=== PATIENT | female | born 1930 | race Caucasian/White ===

== ENCOUNTER 2017-03-20 08:08 | Inpatient (IN) ==
[2017-03-20] MEDS ORDERED: 0.9 % SODIUM CHLORIDE 1,000 ML IV SCH ×2 (08:30→12:07)
--- NOTE | 2017-03-20 08:38 | Emergency Department Note ---
Altered Mental Status HPI - General Chief Complaint: Altered Mental Status Stated Complaint: Altered LOC Time Seen by Provider: 03/20/17 08:12 Source: family, EMS Mode of arrival: EMS Limitations: no limitations - History of Present Illness HPI Narrative: 86-year-old female brought in by ambulance which patient has had decreased level consciousness for the past 4 days since last . She does have a history of Alzheimer's and does not verbally respond but her to daughter care providers state that she is more weak than normal. She is incontinent of urine which is normal for they state that she has been constipated and her last bowel movement was approximately 3 days ago hard and firm. Family states she has been having low-grade temperatures 99-100 MTs state that had 100.4 however ourtemperature at this time is 98.8. Sats are 97% with 4 L of O2 she does have a history of severe COPD and uses O2 at home particularly at nighttime family states she quit smoking approximately 4 years ago but does have extensive. History of COPD. She is DNR they have decided not to do any more ultrasounds of the abdominal aneurysm seen in the notes of the PCP they state they would not do anything aggressive in the way. Do allow use of fluids and antibiotics indicated. States that her diet has been poor her fluid intake has been poor as well - Related Data Home Medications Medication Instructions Recorded Confirmed cholecalciferol (vitamin D3) 1,000 1,000 unit PO QDAY 02/10/15 03/20/17 unit capsule multivitamin oral liquid 1 ml PO QDAY ml 06/08/16 03/20/17 Previous Rx's Medication Instructions Recorded starch (thickening) oral powder See Dose Instructions .ROUTE 02/15/15 packet .MEDSUPPLY #120 each [facility] Hydraulic Lift #1 each 12/16/15 levalbuterol 1.25 mg/3 mL solution 1.25 mg INHALATION Q8H PRN #120 ml 03/02/16 for nebulization Oxygen and supplies #1 yr 07/17/16 metoprolol succinate ER 25 mg 12.5 mg PO QDAY #90 tab 10/12/16 tablet,extended release 24 hr cefdinir 300 mg capsule 300 mg PO Q12H 10 Days #20 cap 03/19/17 Allergies Allergy/AdvReac Type Severity Reaction Status Date / Time No Known Drug Allergies Allergy Verified 03/20/17 08:17 Review of Systems All systems ED: reviewed and negative except as stated. Constitutional: Reports: fever. Denies: chills Eyes: Denies: eye pain ENT ED: Denies: ear pain Cardiovascular: Denies: chest pain, palpitations Respiratory: Reports: other (COPD on home O2). Denies: cough Gastrointestinal: Reports: constipation. Denies: abdominal pain, nausea, vomiting Genitourinary: Reports: incontinence Musculoskeletal: Reports: back pain Integumentary: Denies: rash Neurological: Reports: weakness, other (Severe Alzheimer's). Denies: headache, numbness, paresthesias, confusion Endocrine: Reports: fatigue Hematological/Lymphatic: Denies: easy bleeding Allergic/Immunologic: Denies: facial swelling Past Medical History - Past Medical History Medical history: Reports: aortic aneurysm, COPD, dementia, hyperlipidemia, osteoporosis, other (abdominal aneurysm) Surgical history ED: Reports: cataract, cholecystectomy, hip replacement, CLAY/ BSO Family history: Reports: cancer (Father colon cancer), diabetes (Mother diabetes , aortic aneurysm) - Social History smoking status: Former smoker (Heavy in the past quit 4 years ago) Alcohol use: Reports: None Drug use: Reports: none Physical Exam Limitations: no limitations General appearance: other (has Alzheimer's does not respond verbally) Head: atraumatic, normocephalic Eye: Present: PERRL ENT: normal exam, normal oropharynx, mucous membranes moist Neck: Present: normal inspection, full ROM Chest: Present: normal inspection, symmetric chest wall rise Respiratory: Present: normal lung sounds bilaterally. Absent: respiratory distress, wheezes Cardiovascular: Present: regular rate, normal rhythm. Absent: bradycardia, tachycardia Abdominal: Present: soft, normal bowel sounds. Absent: distention, tenderness, guarding, rebound, rigidity Extremities: Present: normal inspection, full ROM. Absent: tenderness Back: Present: normal inspection, full ROM. Absent: tenderness Patient oriented to: Absent: person, place, time Cranial nerves: EOM function (II, III, IV, ): Normal, facial sensation (V): Normal, facial palsy (VII): Normal, gag reflex (IX): Normal, spinal accessory function (XI): Normal, tongue deviation (XII): Normal Upper motor neuron exam: Babinski sign: Absent bilaterally Sensory exam upper extremity: Normal: pin prick Sensory exam lower extremity: Normal: pin prick DTR: 2+: patellar (L), patellar (R) Course Vital Signs Temperature 98.7 F 03/20/17 08:09 Pulse Rate 119 H 03/20/17 08:09 Respiratory Rate 38 H 03/20/17 08:09 Pulse Oximetry (%) 99 03/20/17 08:09 Temperature 99.4 F H 03/22/17 04:01 Pulse Rate 90 03/22/17 07:00 Respiratory Rate 16 03/22/17 07:00 Blood Pressure 75/45 03/22/17 04:01 Pulse Oximetry (%) 94 03/22/17 04:01 Altered Mental Status - Lab Data Result diagrams: 03/22/17 03:48 03/22/17 03:48 Lab Results 03/20/17 03/20/17 03/20/17 Range/Units 08:03 08:03 08:03 WBC 12.3 H (4.5-11.0) K/mcL RBC 4.59 (4.00-5.20) M/mcL Hgb 14.1 (12.0-15.0) g/dL Hct 43.0 (36.0-48.0) % MCV 93.7 (80.0-100.0) fL MCH 30.6 (26.0-34.0) pg MCHC 32.7 (31.0-36.0) g/dL RDW 16.0 H (11.5-14.5) % Plt Count 280 (140-440) K/mcL MPV 9.8 (7.4-10.4) fL Gran % 80.6 H (38.0-78.0) % Lymph % (Auto) 15.2 L (15.5-49.0) % [place] % (Auto) 3.9 (1.0-12.0) % Eos % (Auto) 0.2 (0.0-7.0) % Baso % (Auto) 0.1 (0.0-2.0) % Gran # 9.9 H (1.8-8.0) K/mcL Lymph # (Auto) 1.9 (1.5-4.8) K/mcL [place] # (Auto) 0.5 (0.1-0.9) K/mcL Eos # (Auto) 0 (0.0-0.7) K/mcL Baso # (Auto) 0 (0.0-0.3) K/mcL VBG Lactic Acid (0.5-2.2) mmol/L Sodium 169 H* (133-145) mmol/L Potassium 4.1 (3.3-5.1) mmol/L Chloride 131 H (96-108) mmol/L Carbon Dioxide 20 L (22-30) mmol/L Anion Gap 18.0 H (8-16) BUN 50 H (8-23) mg/dl Creatinine 1.4 H (0.6-1.1) mg/dl GFR Calculation 34 Glucose 162 H (70-105) mg/dL Calcium 10.1 (8.6-10.4) mg/dl Total Bilirubin 0.4 (0.0-1.0) mg/dL AST 52 H (0-37) U/l ALT 63 H (0-40) U/l Alkaline Phosphatase 202 H (39-117) U/L Total Creatine Kinase 112 (24-170) IU/L CK-MB (CK-2) (0-2.9) ng/ml Myoglobin 165 H (25-58) ng/ml Troponin T 0.05 H* (0-0.03) ng/ml NT-Pro-B Natriuret Pep (0-450) pg/ml Total Protein 7.3 (5.9-8.4) gm/dL Albumin 3.4 (3.2-5.2) gm/dL Globulin 3.9 H (2.2-3.7) gm/dL Albumin/Globulin Ratio 0.9 L (1.0-2.3) Urine Color Urine Appearance Urine pH (5.0-9.0) Ur Specific [place] (1.000-1.035) Urine Protein (NEG) mg/dL Urine Glucose (UA) (NEG) mg/dL Urine Ketones (NEG) mg/dL Urine Occult Blood (<0.03) mg/dL Urine Nitrate (NEG) Urine Bilirubin (NEG) mg/dL Urine Urobilinogen (NEG) mg/dL Ur Leukocyte Esterase (NEG) /uL Urine RBC (0-1) /hpf Urine WBC (0-4) /hpf Ur Squamous Epith Cells (0-4) /hpf Urine Bacteria (0) /hpf Hyaline Casts (0-2) /lpf Urine Mucus (0) /hpf Ur Culture Indicated? 03/20/17 03/20/17 03/20/17 Range/Units 08:03 08:03 08:03 WBC (4.5-11.0) K/mcL RBC (4.00-5.20) M/mcL Hgb (12.0-15.0) g/dL Hct (36.0-48.0) % MCV (80.0-100.0) fL MCH (26.0-34.0) pg MCHC (31.0-36.0) g/dL RDW (11.5-14.5) % Plt Count (140-440) K/mcL MPV (7.4-10.4) fL Gran % (38.0-78.0) % Lymph % (Auto) (15.5-49.0) % Elliott % (Auto) (1.0-12.0) % Eos % (Auto) (0.0-7.0) % Baso % (Auto) (0.0-2.0) % Gran # (1.8-8.0) K/mcL Lymph # (Auto) (1.5-4.8) K/mcL [place] # (Auto) (0.1-0.9) K/mcL Eos # (Auto) (0.0-0.7) K/mcL Baso # (Auto) (0.0-0.3) K/mcL VBG Lactic Acid 2.9 H (0.5-2.2) mmol/L Sodium (133-145) mmol/L Potassium (3.3-5.1) mmol/L Chloride (96-108) mmol/L Carbon Dioxide (22-30) mmol/L Anion Gap (8-16) BUN (8-23) mg/dl Creatinine (0.6-1.1) mg/dl GFR Calculation Glucose (70-105) mg/dL Calcium (8.6-10.4) mg/dl Total Bilirubin (0.0-1.0) mg/dL AST (0-37) U/l ALT (0-40) U/l Alkaline Phosphatase (39-117) U/L Total Creatine Kinase (24-170) IU/L CK-MB (CK-2) 1.2 (0-2.9) ng/ml Myoglobin (25-58) ng/ml Troponin T (0-0.03) ng/ml NT-Pro-B Natriuret Pep 3335.0 H (0-450) pg/ml Total Protein (5.9-8.4) gm/dL Albumin (3.2-5.2) gm/dL Globulin (2.2-3.7) gm/dL Albumin/Globulin Ratio (1.0-2.3) Urine Color Urine Appearance Urine pH (5.0-9.0) Ur Specific [place] (1.000-1.035) Urine Protein (NEG) mg/dL Urine Glucose (UA) (NEG) mg/dL Urine Ketones (NEG) mg/dL Urine Occult Blood (<0.03) mg/dL Urine Nitrate (NEG) Urine Bilirubin (NEG) mg/dL Urine Urobilinogen (NEG) mg/dL Ur Leukocyte Esterase (NEG) /uL Urine RBC (0-1) /hpf Urine WBC (0-4) /hpf Ur Squamous Epith Cells (0-4) /hpf Urine Bacteria (0) /hpf Hyaline Casts (0-2) /lpf Urine Mucus (0) /hpf Ur Culture Indicated? 03/20/17 Range/Units 09:05 WBC (4.5-11.0) K/mcL RBC (4.00-5.20) M/mcL Hgb (12.0-15.0) g/dL Hct (36.0-48.0) % MCV (80.0-100.0) fL MCH (26.0-34.0) pg MCHC (31.0-36.0) g/dL RDW (11.5-14.5) % Plt Count (140-440) K/mcL MPV (7.4-10.4) fL Gran % (38.0-78.0) % Lymph % (Auto) (15.5-49.0) % Elliott % (Auto) (1.0-12.0) % Eos % (Auto) (0.0-7.0) % Baso % (Auto) (0.0-2.0) % Gran # (1.8-8.0) K/mcL Lymph # (Auto) (1.5-4.8) K/mcL [place] # (Auto) (0.1-0.9) K/mcL Eos # (Auto) (0.0-0.7) K/mcL Baso # (Auto) (0.0-0.3) K/mcL VBG Lactic Acid (0.5-2.2) mmol/L Sodium (133-145) mmol/L Potassium (3.3-5.1) mmol/L Chloride (96-108) mmol/L Carbon Dioxide (22-30) mmol/L Anion Gap (8-16) BUN (8-23) mg/dl Creatinine (0.6-1.1) mg/dl GFR Calculation Glucose (70-105) mg/dL Calcium (8.6-10.4) mg/dl Total Bilirubin (0.0-1.0) mg/dL AST (0-37) U/l ALT (0-40) U/l Alkaline Phosphatase (39-117) U/L Total Creatine Kinase (24-170) IU/L CK-MB (CK-2) (0-2.9) ng/ml Myoglobin (25-58) ng/ml Troponin T (0-0.03) ng/ml NT-Pro-B Natriuret Pep (0-450) pg/ml Total Protein (5.9-8.4) gm/dL Albumin (3.2-5.2) gm/dL Globulin (2.2-3.7) gm/dL Albumin/Globulin Ratio (1.0-2.3) Urine Color Yellow Urine Appearance Hazy Urine pH 6.0 (5.0-9.0) Ur Specific [place] 1.025 (1.000-1.035) Urine Protein 30 A (NEG) mg/dL Urine Glucose (UA) Negative (NEG) mg/dL Urine Ketones 5/tr A (NEG) mg/dL Urine Occult Blood Neg (<0.03) mg/dL Urine Nitrate Neg (NEG) Urine Bilirubin Neg (NEG) mg/dL Urine Urobilinogen Neg (NEG) mg/dL Ur Leukocyte Esterase 75 A (NEG) /uL Urine RBC 2 H (0-1) /hpf Urine WBC 36 H (0-4) /hpf Ur Squamous Epith Cells 1 (0-4) /hpf Urine Bacteria Few A (0) /hpf Hyaline Casts 8 H (0-2) /lpf Urine Mucus Mod (0) /hpf Ur Culture Indicated? Yes Disposition Pt seen by CONTROL INTEGRATION ENGINEER/PA only: No Clinical Impression: Dementia, Sepsis, Urinary tract infection Clinical Impression: (Ruled Out): Hypernatremia Disposition: Xfer As Inpt ([facility]) Condition: Fair Time of Disposition: 08:33
[2017-03-20] MEDS ORDERED: 0.9 % SODIUM CHLORIDE 1,000 ML IV ONE (08:50)
--- NOTE | 2017-03-20 08:55 | XRay Report ---
HISTORY: Reason for Exam:weakness, fever, copd dec loc FINDINGS: There is a small alveolar infiltrate medially in the left lower lobe. Laterally in left lower lobe there are bands of discoid atelectasis. Patient has underlying interstitial pulmonary fibrosis throughout both lungs. No pleural effusion is present. The heart size is normal. The aorta is tortuous. IMPRESSION: Mild pneumonia and discoid atelectasis in the left lower lobe Interpreted and Authenticated by: Kenny Crum 03/20/17
[2017-03-20] MEDS ORDERED: LEVOFLOXACIN 500 MG/100 ML BAG IV ONE (09:05)
[2017-03-20 09:12] LABS: Basophils # (Auto) 0 K/mcL (0.0-0.3); Basophils % (Auto) 0.1 % (0.0-2.0); Eosinophils # (Auto) 0 K/mcL (0.0-0.7); Eosinophils % (Auto) 0.2 % (0.0-7.0); Granulocytes % (Auto) 80.6 % (38.0-78.0); Lymphocytes # (Auto) 1.9 K/mcL (1.5-4.8); Lymphocytes % (Auto) 15.2 % (15.5-49.0); Mean Cell Volume 93.7 fL (80.0-100.0); Mean Corpuscular HGB Conc 32.7 g/dL (31.0-36.0); Mean Corpuscular Hemoglobin 30.6 pg (26.0-34.0); Monocytes # (Auto) 0.5 K/mcL (0.1-0.9); Monocytes % (Auto) 3.9 % (1.0-12.0); Platelet Count 280 K/mcL (140-440); RBC 4.59 M/mcL (4.00-5.20)
[2017-03-20 09:40] LABS: ALT/SGPT 63 U/l (0-40); Albumin 3.4 gm/dL (3.2-5.2); Albumin/Globulin Ratio 0.9 (1.0-2.3); Alkaline Phosphatase 202 U/L (39-117); Blood Urea Nitrogen 50 mg/dl (8-23); Creatine Kinase 112 IU/L (24-170); Myoglobin 165 ng/ml (25-58)
[2017-03-20 09:48] LABS: Appearance,Urine HAZY; Bacteria,Urine FEW /hpf (0); Bilirubin,Urine NEG (NEG); Color,Urine YELLOW; Glucose,Urine (UA) NEGATIVE (NEG); Leukocyte Esterase,Urine 75 /uL (NEG); Mucus,Urine MOD /hpf (0); Nitrate,Urine NEG (NEG); Protein,Urine 30 mg/dL (NEG); Specific Gravity,Urine 1.025 (1.000-1.035); Urine Blood NEG mg/dL (<0.03); Urine Hyaline Cast 8 /lpf (0-2); Urine RBC 2 /hpf (0-1); Urine Squamous Epithelial Cell 1 /hpf (0-4); Urine WBC 36 /hpf (0-4); Urobilinogen,Urine NEG (NEG)
[2017-03-20] MEDS ORDERED: ACETAMINOPHEN 650 MG SUPP.RECT PR ONE (09:52)
--- NOTE | 2017-03-20 09:56 | Emergency Department Note ---
Altered Mental Status HPI - General Chief Complaint: Altered Mental Status Stated Complaint: Altered LOC Time Seen by Provider: 03/20/17 08:12 Source: family, EMS Mode of arrival: EMS Limitations: no limitations - Related Data Home Medications Medication Instructions Recorded Confirmed cholecalciferol (vitamin D3) 1,000 1,000 unit PO QDAY 02/10/15 03/20/17 unit capsule Essential Source Max Effect Liquid PO 02/15/15 10/12/16 Vitamin Delivery multivitamin oral liquid 1 ml PO QDAY ml 06/08/16 03/20/17 Previous Rx's Medication Instructions Recorded starch (thickening) oral powder See Dose Instructions .ROUTE 02/15/15 packet .MEDSUPPLY #120 each [facility] Hydraulic Lift #1 each 12/16/15 levalbuterol 1.25 mg/3 mL solution 1.25 mg INHALATION Q8H PRN #120 ml 03/02/16 for nebulization Oxygen and supplies #1 yr 07/17/16 metoprolol succinate ER 25 mg 12.5 mg PO QDAY #90 tab 10/12/16 tablet,extended release 24 hr cefdinir 300 mg capsule 300 mg PO Q12H 10 Days #20 cap 03/19/17 Allergies Allergy/AdvReac Type Severity Reaction Status Date / Time No Known Drug Allergies Allergy Verified 03/20/17 08:17 Review of Systems Constitutional: Reports: fever. Denies: chills Eyes: Denies: eye pain ENT ED: Denies: ear pain Cardiovascular: Denies: chest pain, palpitations Respiratory: Reports: other (COPD on home O2). Denies: cough Gastrointestinal: Reports: constipation. Denies: abdominal pain, nausea, vomiting Genitourinary: Reports: incontinence Musculoskeletal: Reports: back pain Integumentary: Denies: rash Neurological: Reports: weakness, other (Severe Alzheimer's). Denies: headache, numbness, paresthesias, confusion Endocrine: Reports: fatigue Hematological/Lymphatic: Denies: easy bleeding Allergic/Immunologic: Denies: facial swelling Past Medical History - Past Medical History Medical history: Reports: aortic aneurysm, COPD, dementia, hyperlipidemia, osteoporosis, other (abdominal aneurysm) Surgical history ED: Reports: cataract, cholecystectomy, hip replacement, CLAY/ BSO - Social History smoking status: Former smoker (Heavy in the past quit 4 years ago) Alcohol use: Reports: None Drug use: Reports: none Physical Exam Limitations: no limitations General appearance: other (has Alzheimer's does not respond verbally) Course Vital Signs Temperature 98.7 F 03/20/17 08:09 Pulse Rate 119 H 03/20/17 08:09 Respiratory Rate 38 H 03/20/17 08:09 Pulse Oximetry (%) 99 03/20/17 08:09 Temperature 100.1 F H 03/20/17 09:31 Pulse Rate 109 H 03/20/17 09:31 Respiratory Rate 35 H 03/20/17 09:31 Blood Pressure 93/44 03/20/17 09:31 Pulse Oximetry (%) 93 03/20/17 09:31 Altered Mental Status - MDM Narrative Medical decision making narrative: This patient may have urosepsis with hypernatremia. Patient is a DNR and family is happy to have antibiotics and some fluid resuscitation. She will be admitted to a medical floor. She did get Levaquin here in the emergency room. - Lab Data Lab results reviewed: Yes I reviewed the patient's lab results. Result diagrams: 03/20/17 08:03 03/20/17 08:03 Lab Results 03/20/17 03/20/17 03/20/17 Range/Units 08:03 08:03 08:03 WBC 12.3 H (4.5-11.0) K/mcL RBC 4.59 (4.00-5.20) M/mcL Hgb 14.1 (12.0-15.0) g/dL Hct 43.0 (36.0-48.0) % MCV 93.7 (80.0-100.0) fL MCH 30.6 (26.0-34.0) pg MCHC 32.7 (31.0-36.0) g/dL RDW 16.0 H (11.5-14.5) % Plt Count 280 (140-440) K/mcL MPV 9.8 (7.4-10.4) fL Gran % 80.6 H (38.0-78.0) % Lymph % (Auto) 15.2 L (15.5-49.0) % [place] % (Auto) 3.9 (1.0-12.0) % Eos % (Auto) 0.2 (0.0-7.0) % Baso % (Auto) 0.1 (0.0-2.0) % Gran # 9.9 H (1.8-8.0) K/mcL Lymph # (Auto) 1.9 (1.5-4.8) K/mcL [place] # (Auto) 0.5 (0.1-0.9) K/mcL Eos # (Auto) 0 (0.0-0.7) K/mcL Baso # (Auto) 0 (0.0-0.3) K/mcL VBG Lactic Acid (0.5-2.2) mmol/L Sodium 169 H* (133-145) mmol/L Potassium 4.1 (3.3-5.1) mmol/L Chloride 131 H (96-108) mmol/L Carbon Dioxide 20 L (22-30) mmol/L Anion Gap 18.0 H (8-16) BUN 50 H (8-23) mg/dl Creatinine 1.4 H (0.6-1.1) mg/dl GFR Calculation 34 Glucose 162 H (70-105) mg/dL Calcium 10.1 (8.6-10.4) mg/dl Total Bilirubin 0.4 (0.0-1.0) mg/dL AST 52 H (0-37) U/l ALT 63 H (0-40) U/l Alkaline Phosphatase 202 H (39-117) U/L Total Creatine Kinase 112 (24-170) IU/L Myoglobin 165 H (25-58) ng/ml Troponin T 0.05 H* (0-0.03) ng/ml NT-Pro-B Natriuret Pep (0-450) pg/ml Total Protein 7.3 (5.9-8.4) gm/dL Albumin 3.4 (3.2-5.2) gm/dL Globulin 3.9 H (2.2-3.7) gm/dL Albumin/Globulin Ratio 0.9 L (1.0-2.3) Urine Color Urine Appearance Urine pH (5.0-9.0) Ur Specific [place] (1.000-1.035) Urine Protein (NEG) mg/dL Urine Glucose (UA) (NEG) mg/dL Urine Ketones (NEG) mg/dL Urine Occult Blood (<0.03) mg/dL Urine Nitrate (NEG) Urine Bilirubin (NEG) mg/dL Urine Urobilinogen (NEG) mg/dL Ur Leukocyte Esterase (NEG) /uL Urine RBC (0-1) /hpf Urine WBC (0-4) /hpf Ur Squamous Epith Cells (0-4) /hpf Urine Bacteria (0) /hpf Hyaline Casts (0-2) /lpf Urine Mucus (0) /hpf Ur Culture Indicated? 03/20/17 03/20/17 03/20/17 Range/Units 08:03 08:03 09:05 WBC (4.5-11.0) K/mcL RBC (4.00-5.20) M/mcL Hgb (12.0-15.0) g/dL Hct (36.0-48.0) % MCV (80.0-100.0) fL MCH (26.0-34.0) pg MCHC (31.0-36.0) g/dL RDW (11.5-14.5) % Plt Count (140-440) K/mcL MPV (7.4-10.4) fL Gran % (38.0-78.0) % Lymph % (Auto) (15.5-49.0) % [place] % (Auto) (1.0-12.0) % Eos % (Auto) (0.0-7.0) % Baso % (Auto) (0.0-2.0) % Gran # (1.8-8.0) K/mcL Lymph # (Auto) (1.5-4.8) K/mcL [place] # (Auto) (0.1-0.9) K/mcL Eos # (Auto) (0.0-0.7) K/mcL Baso # (Auto) (0.0-0.3) K/mcL VBG Lactic Acid 2.9 H (0.5-2.2) mmol/L Sodium (133-145) mmol/L Potassium (3.3-5.1) mmol/L Chloride (96-108) mmol/L Carbon Dioxide (22-30) mmol/L Anion Gap (8-16) BUN (8-23) mg/dl Creatinine (0.6-1.1) mg/dl GFR Calculation Glucose (70-105) mg/dL Calcium (8.6-10.4) mg/dl Total Bilirubin (0.0-1.0) mg/dL AST (0-37) U/l ALT (0-40) U/l Alkaline Phosphatase (39-117) U/L Total Creatine Kinase (24-170) IU/L Myoglobin (25-58) ng/ml Troponin T (0-0.03) ng/ml NT-Pro-B Natriuret Pep 3335.0 H (0-450) pg/ml Total Protein (5.9-8.4) gm/dL Albumin (3.2-5.2) gm/dL Globulin (2.2-3.7) gm/dL Albumin/Globulin Ratio (1.0-2.3) Urine Color Yellow Urine Appearance Hazy Urine pH 6.0 (5.0-9.0) Ur Specific [place] 1.025 (1.000-1.035) Urine Protein 30 A (NEG) mg/dL Urine Glucose (UA) Negative (NEG) mg/dL Urine Ketones 5/tr A (NEG) mg/dL Urine Occult Blood Neg (<0.03) mg/dL Urine Nitrate Neg (NEG) Urine Bilirubin Neg (NEG) mg/dL Urine Urobilinogen Neg (NEG) mg/dL Ur Leukocyte Esterase 75 A (NEG) /uL Urine RBC 2 H (0-1) /hpf Urine WBC 36 H (0-4) /hpf Ur Squamous Epith Cells 1 (0-4) /hpf Urine Bacteria Few A (0) /hpf Hyaline Casts 8 H (0-2) /lpf Urine Mucus Mod (0) /hpf Ur Culture Indicated? Yes - Radiology Data Radiology results reviewed: Yes I reviewed the patient's radiology results. Disposition Pt seen by IN FLIGHT REFUELING MANAGER/PA only: No Clinical Impression: Dementia, Sepsis, Urinary tract infection, Hypernatremia Disposition: Xfer As Inpt ([facility]) Condition: Fair Referrals: Daryl Linares MD [Primary Care Provider] - Time of Disposition: 09:55
[2017-03-20 10:03] LABS: Creatine Kinase MB 1.2 ng/ml (0-2.9)
--- NOTE | 2017-03-20 10:41 | Internal Med History&Physical ---
Medical - H&P: HPI Patient information: Note initiated : 03/20/17 at 10:38 am Patient: Claribel Easley 86 y/o F admitted on for Altered LOC. History of present illness: Ms. Easley is a 86 year old woman with a history of Alzheimer's disease, COPD, osteoporosis, shingles, urinary tract infections, who has been declining at home over the last month. She is awake less and less often, and often refuses food and drink. Her family says she will only drink fluids through a straw, but often refuses to take anything in. She has a no CODE STATUS, and her family stays with her 24 hours a day, but if she has something simple to treat, such as a bladder infection, they would like that treated. They thought perhaps she had a fever today. She also seem to be grimacing today, and they were worried that she was in pain. ER evaluation showed marked hypernatremia, elevated creatinine, fever, leukocytosis, pyuria. The family would like the patient made comfortable, and they would like her to get antibiotics and fluids. If those turn her around and they will take her back home. If those do not improve they really do not want more aggressive measures done. The patient is nonverbal, so she has not been able to tell them about any specific symptoms. They have not noticed signs of headaches or dizziness, sore throat or cough, chest pain or shortness of breath, abdominal pain, nausea or vomiting. They do believe she has been constipated for several days. They are unaware of dysuria. Medical History Altered mental status (Acute) Sepsis (Acute) UTI (urinary tract infection) (Acute) UTI (urinary tract infection) (Acute) Abdominal aneurysm (Chronic) Alzheimer's disease (Chronic) COPD (chronic obstructive pulmonary disease) (Chronic) Gallbladder problem (Chronic) removed Hypercholesterolemia (Chronic) Osteoporosis (Chronic) Shingles (Chronic) Whooping cough (Chronic) Surgical History H/O cataract extraction (Chronic) H/O colonoscopy (Chronic) H/O: hysterectomy (Chronic) History of cholecystectomy (Chronic) History of hip replacement (Chronic) Medication List cholecalciferol (vitamin D3) 1,000 units PO QDAY [Essential Source Max Effect Liquid Vitamin Delivery PO] [[facility] Hydraulic Lift ] levalbuterol 1.25 mg (3 mL) Inhalation Q8H PRN metoprolol succinate ER 25 mg (1/2 x 50 mg) PO QDAY multivitamin oral liquid 1 mL PO QDAY [Oxygen and supplies ] starch (thickening) oral powder packet As directed Allergies/Adverse Reactions No Known Drug Allergies Allergy (Verified 10/12/16 12:56) Family History Brother Malignant neoplasm of colon Mother Diabetes mellitus Abdominal aortic aneurysm Herpes zoster Social History marital status: . One of her daughters stays with her at all times. smoking status: Former smoker alcohol intake frequency: does not drink substance use type: does not use Medical - H&P: Meds Home Medications Medication Instructions Recorded Confirmed Type cholecalciferol (vitamin D3) 1,000 1,000 unit PO QDAY 02/10/15 03/20/17 History unit capsule starch (thickening) oral powder See Dose Instructions .ROUTE 02/15/15 10/12/16 Rx packet .MEDSUPPLY #120 each [facility] #1 each 12/16/15 10/12/16 Rx levalbuterol 1.25 mg/3 mL solution 1.25 mg INHALATION Q8H PRN #120 ml 03/02/16 03/20/17 Rx for nebulization multivitamin oral liquid 1 ml PO QDAY ml 06/08/16 03/20/17 History Oxygen and supplies #1 yr 07/17/16 10/12/16 Rx metoprolol succinate ER 25 mg 12.5 mg PO QDAY #90 tab 10/12/16 03/20/17 Rx tablet,extended release 24 hr cefdinir 300 mg capsule 300 mg PO Q12H 10 Days #20 cap 03/19/17 03/20/17 Rx Allergies Allergy/AdvReac Type Severity Reaction Status Date / Time No Known Drug Allergies Allergy Verified 03/20/17 08:17 Medical - H&P: Exam - Constitutional Vitals: Temp Pulse Resp BP Pulse Ox 99.3 F H 104 H 28 H 90/50 94 03/20/17 10:13 03/20/17 10:13 03/20/17 10:13 03/20/17 09:46 03/20/17 10:13 Temperature is ranging from 98.7 100.1. Rate 105-114. Respiratory rate ranging from 28-35. Oxygen saturation looks like it was 89% on room air, improved to 99% on 4 L nasal cannula, and currently 94% on a 3 L oxygen mask. The patient is somnolent. She grimaces when we try to roll her over or open her eyes. She is breathing via facemask, and breathing seems a bit labored. Head: Normocephalic, atraumatic. Ears: TMs and canals are clear. Eyes: She does not cooperate with exam, but pupils appear round and reactive. Pharynx: She will open her mouth a little. Mucosa looks markedly dry. Neck: Shows no obvious lymphadenopathy, JVD, thyromegaly, bruits. Cardiac exam: Is regular rate and rhythm with normal S1 and S2, no murmurs, rubs , gallops are noted. Lungs: Are clear to auscultation, though breathing is somewhat labored. There are no definite rales, rhonchi, wheezes. Abdomen: Is soft, but the patient does grimace with palpation. There are no obvious masses, bowel sounds are active. Extremities: Show no significant edema, cyanosis, clubbing. Neurologic exam: The patient is somnolent and difficult to arouse. She does not follow commands. Motor strength and cranial nerves are difficult to assess. Medical - H&P: Reslt - Labs CBC & Chem 7: 03/20/17 08:03 03/20/17 08:03 Labs: Short CBC 03/20/17 Range/Units 08:03 WBC 12.3 H (4.5-11.0) K/mcL Hgb 14.1 (12.0-15.0) g/dL Hct 43.0 (36.0-48.0) % Plt Count 280 (140-440) K/mcL [facility] 03/20/17 08:03 Sodium 169 H* Potassium 4.1 Chloride 131 H Carbon Dioxide 20 L BUN 50 H Creatinine 1.4 H Glucose 162 H Calcium 10.1 Cardiac Enzymes 03/20/17 03/20/17 03/20/17 Range/Units 08:03 08:03 08:03 Total Creatine Kinase 112 (24-170) IU/L CK-MB (CK-2) 1.2 (0-2.9) ng/ml Troponin T 0.05 H* (0-0.03) ng/ml Liver Function 03/20/17 Range/Units 08:03 Total Bilirubin 0.4 (0.0-1.0) mg/dL AST 52 H (0-37) U/l ALT 63 H (0-40) U/l Alkaline Phosphatase 202 H (39-117) U/L Albumin 3.4 (3.2-5.2) gm/dL Urine 03/20/17 Range/Units 09:05 Urine Color Yellow Urine Appearance Hazy Urine pH 6.0 (5.0-9.0) Ur Specific Luna 1.025 (1.000-1.035) Urine Protein 30 A (NEG) mg/dL Urine Glucose (UA) Negative (NEG) mg/dL March 20: CBC differential: Shows 9900 granulocytes. Lactic acid is elevated at 2.9 ProBNP is elevated at 3335 Troponin is elevated at 0.05 next Urinalysis shows 30 mg of protein, 5 ketones, 75 leukocyte esterase, 36 white blood cells, few bacteria. Chest x-ray: Shows a small alveolar infiltrate medially in the left lower lobe with underlying interstitial pulmonary fibrosis throughout. Medical - H&P: A/P (1) LLL pneumonia Current visit: Yes Status: Acute (2) Altered mental status Current visit: No Status: Acute (3) UTI (urinary tract infection) Current visit: Yes Status: Acute (4) Hypernatremia Current visit: Yes Status: Acute (5) COPD (chronic obstructive pulmonary disease) Current visit: No Status: Chronic - Narrative A/P Narrative: #1. Infectious disease. Patient presents with fever, altered mental status, and lab data consistent with both urinary tract infection and early left lower lobe pneumonia. -Per the family's wishes, patient will be admitted for IV fluids and antibiotics. They do not want intubation or other aggressive resuscitation measures. 2. Endocrine. Patient presents with severe hypernatremia, consistent with severe free water deficit. This is likely due to ongoing poor intake of free water for quite some time. I expect that is also related to her dementia. Gentle IV fluid rehydration, initially with half normal saline, and then probably with D5W, depending on her progress. Her sodium is probably been elevated for the better part of a month. 3. Mildly elevated troponin and BNP. She certainly could have underlying coronary disease, or these just may be related to her acute kidney dysfunction. She has a no code order, and family would not want aggressive measures. 4. Pulmonary. Patient appears to have an early left lower lobe pneumonia, in the setting of COPD and pulmonary fibrosis. Continue supportive measures, incentive spirometry, oxygen as needed, bronchodilators as needed, IV antibiotics. 5. CODE STATUS: No CPR. 1 of her daughters has her POA, but they say all of the family would have to agree before moving to comfort/hospice care. 6. DVT prophylaxis: Subcu heparin. 7. Neurologic. Patient has a history of Alzheimer's disease. She is currently cared for by her family at home. It sounds like they do not want to put her through a lot of procedures and such, and would rather move to comfort care if those become necessary. 8. GI. History of gallstones. Approximately 55 minutes was spent with the patient today, as well as her family , interviewing them and examining her, reviewing her case with the ER MD, reviewing her records, and writing orders.
[2017-03-20] MEDS ORDERED: 0.45 % SODIUM CHLORIDE 1,000 ML IV SCH (11:00)
[2017-03-20] MEDS ORDERED: MAGNESIUM HYDROXIDE 30 ML ORAL.SUSP PO PRN (12:07)
[2017-03-20] MEDS ORDERED: cefTRIAXone 1 GM in DEXTROSE 5% IN WATER 50 ML IV SCH (12:07)
[2017-03-20] MEDS ORDERED: HYDROcodone/APAP 5/325MG TABLET PO PRN (12:07)
[2017-03-20] MEDS ORDERED: NALOXONE HCL 0.4 MG/ML VIAL IV PRN (12:07)
[2017-03-20] MEDS ORDERED: DOCUSATE SODIUM 100 MG CAPSULE PO PRN (12:07)
[2017-03-20] MEDS ORDERED: ONDANSETRON 4 MG/2 ML VIAL IV PRN (12:07)
[2017-03-20] MEDS ORDERED: DEXTROSE 5%-1/2NS W/10MEQ KCL 1,000 ML IV SCH (12:30)
[2017-03-20] MEDS: LEVALBUTEROL 0.63 MG/3 ML AMPUL.NEB NEB SCH ×2 (13:03→19:06)
[2017-03-20] MEDS ORDERED: BISACODYL 10 MG SUPP.RECT PR PRN (14:01)
[2017-03-20] MEDS ORDERED: LORazepam 2 MG/ML VIAL IV PRN (14:03)
[2017-03-20] MEDS: cefTRIAXone 1 GM VIAL IV SCH (14:34)
[2017-03-20] MEDS: ACETAMINOPHEN 325 MG TABLET PO PRN (18:57)
[2017-03-20] MEDS: HEPARIN 5,000 UNIT/ML VIAL SQ SCH (21:20)
[2017-03-21] MEDS ORDERED: DEXTROSE 5%-1/2NS W/10MEQ KCL 1,000 ML IV SCH (00:13)
[2017-03-21] MEDS: LEVALBUTEROL 0.63 MG/3 ML AMPUL.NEB NEB SCH ×4 (02:26→19:37)
[2017-03-21 05:44] LABS: Basophils # (Auto) 0 K/mcL (0.0-0.3); Basophils % (Auto) 0.3 % (0.0-2.0); Eosinophils # (Auto) 0.1 K/mcL (0.0-0.7); Eosinophils % (Auto) 1.3 % (0.0-7.0); Granulocytes % (Auto) 75.1 % (38.0-78.0); Lymphocytes # (Auto) 1.7 K/mcL (1.5-4.8); Lymphocytes % (Auto) 19.2 % (15.5-49.0); Mean Cell Volume 93.6 fL (80.0-100.0); Mean Corpuscular HGB Conc 32.3 g/dL (31.0-36.0); Mean Corpuscular Hemoglobin 30.3 pg (26.0-34.0); Monocytes # (Auto) 0.4 K/mcL (0.1-0.9); Monocytes % (Auto) 4.1 % (1.0-12.0); Platelet Count 185 K/mcL (140-440); RBC 3.57 M/mcL (4.00-5.20); Red Cell Distribution Width 15.7 % (11.5-14.5)
[2017-03-21 06:20] LABS: ALT/SGPT 37 U/l (0-40); Albumin 2.6 gm/dL (3.2-5.2); Albumin/Globulin Ratio 0.9 (1.0-2.3); Alkaline Phosphatase 139 U/L (39-117); Bilirubin,Direct < 0.2 mg/dL (0.0-0.3); Blood Urea Nitrogen 33 mg/dl (8-23); Gamma Glutamyl Transpeptidase 49 U/L (5-36); Magnesium 2.4 mg/dL (1.6-2.5); Uric Acid 5.9 mg/dL (2.5-8.0)
[2017-03-21] MEDS ORDERED: DEXTROSE 5%-1/2NS W/30MEQ KCL 1,000 ML IV SCH (07:45)
--- NOTE | 2017-03-21 08:36 | XRay Report ---
HISTORY: Reason for Exam:fever, altered MS , left lower lobe pulmonary infiltrate FINDINGS: There is a small persistent small alveolar infiltrate inferiorly medially in the left lower lobe, extending up to the hilum. This is remain stable since 03/20/17. There are also bands of discoid atelectasis laterally in the left lower lobe. They have slightly improved. Moderate generalized interstitial fibrosis is present throughout both lungs. There is no evidence of a mass or pleural effusion. The heart size is normal. IMPRESSION: Persistent mild left lower lobe pneumonia superimposed upon underlying pulmonary fibrosis Interpreted and Authenticated by: Kenny Crum 03/21/17
[2017-03-21] MEDS ORDERED: METOPROLOL SUCCINATE 50 MG TAB.XL.24H PO SCH (09:00)
[2017-03-21] MEDS: ACETAMINOPHEN 325 MG TABLET PO PRN (09:48)
[2017-03-21] MEDS: MULTIVIT,THER IRON,CA,FA & MIN 1 TABLET PO SCH (09:48)
[2017-03-21] MEDS: VITAMIN D3 1,000 UNIT TABLET PO SCH (09:48)
[2017-03-21] MEDS: HEPARIN 5,000 UNIT/ML VIAL SQ SCH ×2 (09:48→21:09)
--- NOTE | 2017-03-21 11:55 | Internal Med Progress Note ---
Medical - PN: Subj Patient information: Note initiated : 03/21/17 at 11:55 am Service Date, if different from initiated Date: [] Patient: Claribel Easley 86 y/o F admitted on 03/20/17 for Altered LOC. Chief Complaint: [] Interval history: March 20, 2017: History of present illness: Ms. Easley is a 86 year old woman with a history of Alzheimer's disease, COPD, osteoporosis, shingles, urinary tract infections, who has been declining at home over the last month. She is awake less and less often, and often refuses food and drink. Her family says she will only drink fluids through a straw, but often refuses to take anything in. She has a no CODE STATUS, and her family stays with her 24 hours a day, but if she has something simple to treat, such as a bladder infection, they would like that treated. They thought perhaps she had a fever today. She also seem to be grimacing today, and they were worried that she was in pain. ER evaluation showed marked hypernatremia, elevated creatinine, fever, leukocytosis, pyuria. The family would like the patient made comfortable, and they would like her to get antibiotics and fluids. If those turn her around and they will take her back home. If those do not improve they really do not want more aggressive measures done. The patient is nonverbal, so she has not been able to tell them about any specific symptoms. They have not noticed signs of headaches or dizziness, sore throat or cough, chest pain or shortness of breath, abdominal pain, nausea or vomiting. They do believe she has been constipated for several days. They are unaware of dysuria. March 21: Today, the patient is a bit more responsive, but is still nonverbal. She keeps her eyes closed mostly. She grimaces and withdraws anytime she is touched or moved. Sodium is somewhat improved, but she has remained fairly hypotensive throughout the night, although she is maintaining mean arterial blood pressures above 65. She is still oxygenating well. BUN and creatinine are improved. 3 of her daughters are in the room with her this morning. They would like to continue with treatment for UTI with IV fluids and antibiotics, to see if she will improve. Beyond that, they would like to meet with a hospice nurse to discuss with her options are. There are long-term goal is to have the mother at home and not bring her back to the hospital, but to keep her comfortable. The patient is unable to contribute any history. - Constitutional Vitals: Vital Signs Temp Pulse Resp BP Pulse Ox 98.5 F 85 18 84/57 96 03/21/17 04:04 03/21/17 07:11 03/21/17 07:11 03/21/17 10:01 03/21/17 10:39 Period Temp Pulse Resp BP Sys/Anderson Pulse Ox Last 24 Hr 97.6 F-99.4 F 80-96 18-32 53-97/29-79 86-99 Intake and Output 03/20/17 03/21/17 03/21/17 21:59 05:59 13:59 Intake Total 1125 / 1125 906 / 906 Output Total 625 / 625 320 / 320 Balance -625 / -625 805 / 805 906 / 906 Weight 124 lb 14.4 oz 124 lb 14.4 oz Patient Weight 03/22/17 05:59 Weight 124 lb 14.4 oz Intake & Output: Intake & Output 03/20/17 03/21/17 03/21/17 21:59 05:59 13:59 Intake Total 1125 / 1125 906 / 906 Output Total 625 / 625 320 / 320 Balance -625 / -625 805 / 805 906 / 906 Weight 124 lb 14.4 oz 124 lb 14.4 oz Intake: IV 1000 / 1000 906 / 906 Dextrose 5%-1/2Ns W/10Meq KCl 1 906 / 906 ,000 ml @ 120 mls/hr IV Q12H [facility] Rx#:[id number] Oral 125 / 125 Output: Urine Catheter Amount 625 / 625 320 / 320 Other: # Bowel Movements 1 On exam, she is a somnolent frail elderly female, who grimaces if she is touched or examined. Neck shows no obvious JVD. Cardiac exam shows regular rate and rhythm. Lungs appear fairly clear to auscultation, with some scattered crackles. Abdomen is soft without obvious tenderness. Extremities show no edema. Neurologic: The patient is fairly obtunded. She does not follow commands. Medical - PN: Obj Da - Labs CBC & Chem 7: 03/21/17 03:53 03/21/17 03:53 Labs: Abnormal Lab Results 03/21/17 03/21/17 03/20/17 03:53 03:53 09:05 WBC RBC 3.57 L Hgb 10.8 L Hct 33.4 L RDW 15.7 H Gran % Lymph % (Auto) Gran # VBG Lactic Acid Sodium 161 H* Chloride 131 H Carbon Dioxide 21 L Anion Gap BUN 33 H Creatinine Glucose 144 H Calcium 8.4 L Phosphorus 1.8 L GGT 49 H AST ALT Alkaline Phosphatase 139 H Myoglobin Troponin T NT-Pro-B Natriuret Pep Total Protein 5.4 L Albumin 2.6 L Globulin Albumin/Globulin Ratio 0.9 L Triglycerides 205 H Urine Protein 30 A Urine Ketones 5/tr A Ur Leukocyte Esterase 75 A Urine RBC 2 H Urine WBC 36 H Urine Bacteria Few A Hyaline Casts 8 H 03/20/17 03/20/17 03/20/17 08:03 08:03 08:03 WBC 12.3 H RBC Hgb Hct RDW 16.0 H Gran % 80.6 H Lymph % (Auto) 15.2 L Gran # 9.9 H VBG Lactic Acid 2.9 H Sodium Chloride Carbon Dioxide Anion Gap BUN Creatinine Glucose Calcium Phosphorus GGT AST ALT Alkaline Phosphatase Myoglobin Troponin T NT-Pro-B Natriuret Pep 3335.0 H Total Protein Albumin Globulin Albumin/Globulin Ratio Triglycerides Urine Protein Urine Ketones Ur Leukocyte Esterase Urine RBC Urine WBC Urine Bacteria Hyaline Casts 03/20/17 03/20/17 08:03 08:03 WBC RBC Hgb Hct RDW Gran % Lymph % (Auto) Gran # VBG Lactic Acid Sodium 169 H* Chloride 131 H Carbon Dioxide 20 L Anion Gap 18.0 H BUN 50 H Creatinine 1.4 H Glucose 162 H Calcium Phosphorus GGT AST 52 H ALT 63 H Alkaline Phosphatase 202 H Myoglobin 165 H Troponin T 0.05 H* NT-Pro-B Natriuret Pep Total Protein Albumin Globulin 3.9 H Albumin/Globulin Ratio 0.9 L Triglycerides Urine Protein Urine Ketones Ur Leukocyte Esterase Urine RBC Urine WBC Urine Bacteria Hyaline Casts March 21: Chest x-ray: Shows persistent mild left lower lobe pneumonia superimposed upon underlying pulmonary fibrosis. Nasal MRSA screen is positive. Blood cultures are negative so far. Urine culture: Shows no growth so far. March 20: CBC: White blood cell count 12,000, hemoglobin 14, hematocrit 43, platelets 280. Differential: Shows 9900 granulocytes. Next Chemistry panel: Show sodium of 169, potassium 4.1, chloride 131, CO2 20, anion gap 18, BUN 50, creatinine 1.4, glucose 162 AST is 52, ALT 63, alk phos 202 Lactic acid is elevated at 2.9 ProBNP is elevated at 3335 Troponin is elevated at 0.05 next Urinalysis shows 30 mg of protein, 5 ketones, 75 leukocyte esterase, 36 white blood cells, few bacteria. Chest x-ray: Shows a small alveolar infiltrate medially in the left lower lobe with underlying interstitial pulmonary fibrosis throughout. Meds: Medications Acetaminophen (Tylenol) 650 mg PO Q6HP PRN PRN Reason: PAIN/FEVER > 101 Last Admin: 03/21/17 09:48 Dose: 650 mg Hydrocodone Bitart/Acetaminophen ([place] 5/325mg) 1 tab PO Q4HP PRN PRN Reason: PAIN LEVEL 3-6 Bisacodyl (Dulcolax) 10 mg [facility] DAILYP PRN PRN Reason: Constipation Last Admin: 03/20/17 14:38 Dose: 10 mg Ceftriaxone Sodium (Rocephin) 1 gm IV Q24H [facility] Last Admin: 03/20/17 14:34 Dose: 1 gm Docusate Sodium (Colace) 100 mg PO BID PRN PRN Reason: Constipation Heparin Sodium (Porcine) (Heparin) 5,000 unit SQ Q12 [facility] Last Admin: 03/21/17 09:48 Dose: 5,000 unit Sodium Chloride (Sodium Chloride 0.9%) 1,000 mls @ 0 mls/hr IV .Q0M [facility] PRN Reason: Wide Open Potassium Chloride/Dextrose/Sod Cl (Dextrose 5%-1/2ns W/30meq Kcl) 1,000 mls @ 120 mls/hr IV .Q8H20M [facility] Last Admin: 03/21/17 09:48 Dose: 120 mls/hr Iron Carb/Multivit/Blood Bank Technician/Folic Acid (Multivitamin W/Minerals) 1 tab PO DAILY [facility] Last Admin: 03/21/17 09:48 Dose: 1 tab Levalbuterol HCl (Xopenex) 0.63 mg NEB Q6HRT [facility] Last Admin: 03/21/17 06:57 Dose: 0.63 mg Lorazepam (Ativan) 0.5 mg IV Q2-4HP PRN PRN Reason: ANXIETY/SEDATION Magnesium Hydroxide (Milk Of Magnesia) 30 ml PO DAILYP PRN PRN Reason: Constipation Metoprolol Succinate (Toprol Xl) 12.5 mg PO QDAY [facility] Last Admin: 03/21/17 10:07 Dose: Not Given Morphine Sulfate (Morphine) 2 mg IV Q2HP PRN PRN Reason: PAIN LEVEL > 6 Naloxone HCl (Narcan) 0.1 mg IV Q2MIN PRN PRN Reason: Opiate Reversal Ondansetron HCl (Zofran) 4 mg IV Q4HP PRN PRN Reason: Nausea And Vomiting Vitamin D (Vitamin D3) 1,000 unit PO DAILY [facility] Last Admin: 03/21/17 09:48 Dose: 1,000 unit Medical - PN: A/P - Time Spent With Patient Total time spent is greater than 50% in coordination of care (as documented) at patient's floor/unit and/or counseling patient: 25 - 35 minutes (1) LLL pneumonia Status: Acute Current Visit: Yes (2) Altered mental status Status: Acute Current Visit: No (3) UTI (urinary tract infection) Status: Acute Current Visit: Yes (4) Hypernatremia Status: Acute Current Visit: Yes (5) COPD (chronic obstructive pulmonary disease) Status: Chronic Current Visit: No - Narrative A/P Narrative: #1. Infectious disease. Patient presents with fever, altered mental status, and lab data consistent with both urinary tract infection and early left lower lobe pneumonia. -Per the family's wishes, patient will be admitted for IV fluids and antibiotics. They do not want intubation or other aggressive resuscitation measures. -Patient's white blood cell count has returned to normal. She is afebrile. She otherwise clinically does not have symptoms of important infection. Continue empiric antibiotics for now, pending cultures. 2. Endocrine. Patient presents with severe hypernatremia, consistent with severe free water deficit. This is likely due to ongoing poor intake of free water for quite some time. I expect that is also related to her dementia. -Hypernatremia is modestly improved. Change IV fluids to D5W with potassium and continue to follow. 3. Mildly elevated troponin and BNP. She certainly could have underlying coronary disease, or these just may be related to her acute kidney dysfunction. She has a no code order, and family would not want aggressive measures. 4. Pulmonary. Patient appears to have an early left lower lobe pneumonia, in the setting of COPD and pulmonary fibrosis. Continue supportive measures, incentive spirometry, oxygen as needed, bronchodilators as needed, IV antibiotics. 5. CODE STATUS: No CPR. 1 of her daughters has her POA, but they say all of the family would have to agree before moving to comfort/hospice care. 6. DVT prophylaxis: Subcu heparin. 7. Neurologic. Patient has a history of Alzheimer's disease. She is currently cared for by her family at home. It sounds like they do not want to put her through a lot of procedures and such, and would rather move to comfort care if those become necessary. 8. GI. History of gallstones. Disposition: The family would like to give her a chance to get over pneumonia and UTI at this time. However, if she does not improve, they are amenable to moving towards comfort care. They will meet with the hospice nurse this afternoon so hospice can talk to them about what they have to offer. Medical - PN: Qual - Stroke Symptom Onset Unknown: No - VTE Deep Vein Thrombosis/Pulmonary Embolism Present on Admission: No
[2017-03-21] MEDS: cefTRIAXone 1 GM VIAL IV SCH (14:57)
[2017-03-21] MEDS: WATER IV SCH (16:15)
[2017-03-21] MEDS: POTASSIUM CHLORIDE IV SCH (16:15)
[2017-03-21] MEDS: DEXTROSE 5% IV SCH (16:15)
[2017-03-22] MEDS: LEVALBUTEROL 0.63 MG/3 ML AMPUL.NEB NEB SCH ×3 (01:41→13:25)
[2017-03-22] MEDS: WATER IV SCH (02:48)
[2017-03-22] MEDS: POTASSIUM CHLORIDE IV SCH (02:48)
[2017-03-22] MEDS: DEXTROSE 5% IV SCH (02:48)
[2017-03-22 06:00] LABS: Basophils # (Auto) 0 K/mcL (0.0-0.3); Basophils % (Auto) 0.3 % (0.0-2.0); Eosinophils # (Auto) 0.1 K/mcL (0.0-0.7); Eosinophils % (Auto) 1.2 % (0.0-7.0); Granulocytes % (Auto) 74.8 % (38.0-78.0); Lymphocytes # (Auto) 2.1 K/mcL (1.5-4.8); Lymphocytes % (Auto) 20.3 % (15.5-49.0); Mean Cell Volume 94.1 fL (80.0-100.0); Mean Corpuscular HGB Conc 32.6 g/dL (31.0-36.0); Mean Corpuscular Hemoglobin 30.7 pg (26.0-34.0); Monocytes # (Auto) 0.4 K/mcL (0.1-0.9); Monocytes % (Auto) 3.4 % (1.0-12.0); Platelet Count 220 K/mcL (140-440); RBC 3.65 M/mcL (4.00-5.20); Red Cell Distribution Width 16.1 % (11.5-14.5)
[2017-03-22 06:18] LABS: ALT/SGPT 39 U/l (0-40); Albumin 2.4 gm/dL (3.2-5.2); Albumin/Globulin Ratio 0.8 (1.0-2.3); Alkaline Phosphatase 164 U/L (39-117); Bilirubin,Direct < 0.2 mg/dL (0.0-0.3); Blood Urea Nitrogen 22 mg/dl (8-23); Gamma Glutamyl Transpeptidase 50 U/L (5-36); Magnesium 2.3 mg/dL (1.6-2.5); Uric Acid 4.7 mg/dL (2.5-8.0)
[2017-03-22] MEDS: HEPARIN 5,000 UNIT/ML VIAL SQ SCH (10:10)
[2017-03-22] MEDS: VITAMIN D3 1,000 UNIT TABLET PO SCH (10:11)
[2017-03-22] MEDS: MULTIVIT,THER IRON,CA,FA & MIN 1 TABLET PO SCH (10:11)
--- NOTE | 2017-03-22 10:54 | Discharge Summary ---
Medical - DS: Prov Patient information: Note initiated : 03/22/17 at 10:54 am Service Date, if different from initiated Date: [] Patient: Claribel Easley 86 y/o F admitted on 03/20/17 for Altered LOC/Pneumonia. Chief Complaint: [] Date of admission: 03/20/17 11:42 Discharge date: 03/22/17 Primary care physician: Colt Linares or Dr. Daisy Lovelace. Admitting clinician: Vidhya Orozco Consults: 03/20/17 10:17 Consult to Physician [CONS] Stat Comment: Consulting Provider: Vidhya Orozco Reason For Exam: Physician to Consult 03/21/17 03:20 Consult to Physician [CONS] Routine Comment: Possible DTIs - Lt heel, bilat Ischial tuberosity Consulting Provider: Octavio Kohli Reason For Exam: Physician to Consult Attending physician on discharge: Vidhya Orozco Medical - DS: Meds - Discharge Medications Prescriptions: Amoxicillin/Potassium Clav [Augmentin 250-62.5 mg/5 ml] 10 ml PO Q8H #150 ml LORazepam [Lorazepam Intensol] 0.5 mg PO Q4HP PRN #30 ml PRN Reason: Anxiety morphine SULFATE [Morphine Sulfate] 2.5 mg PO Q30M PRN #120 ml PRN Reason: Pain Active and Home Medications: Discharge medications: Augmentin solution, 10 mL p.o. every 8 hours, 5 days, for possible early pneumonia. Morphine solution, 10 mg per 5 mL's, 2.5 mg p.o. every 30 minutes as needed pain or respiratory distress Lorazepam solution, 0.5 mg p.o. every 4 hours as needed anxiety or agitation Tylenol 650 mg every 6 hours as needed Dulcolax suppository 10 mg daily as needed constipation Colace 100 mg p.o. twice daily Milk of magnesia 30 mL daily as needed constipation Vitamin D 1000 units daily, this could be discontinued Xopenex nebulizers every 4 hours as needed wheezing or shortness of breath Given that she is transitioning to comfort care, it would be fine to discontinue vitamin D, multivitamin, metoprolol Previous home Medications: cholecalciferol (vitamin D3) 1,000 unit capsule 1,000 unit PO QDAY 02/10/15 [ History Confirmed 03/20/17 Last Taken 03/20/17 08:00] starch (thickening) oral powder packet See Dose Instructions .ROUTE .MEDSUPPLY # 120 each 02/15/15 [Rx Confirmed 10/12/16 Last Taken Unknown] [employer] Lift #1 each 12/16/15 [Rx Confirmed 10/12/16 Last Taken Unknown] levalbuterol 1.25 mg/3 mL solution for nebulization 1.25 mg INHALATION Q8H PRN # 120 ml 03/02/16 [Rx Confirmed 03/20/17 Last Taken 03/20/17 08:00] multivitamin oral liquid 1 ml PO QDAY ml 06/08/16 [History Confirmed 03/20/17 Last Taken 03/20/17 08:00] Oxygen and supplies #1 yr 07/17/16 [Rx Confirmed 10/12/16 Last Taken Unknown] metoprolol succinate ER 25 mg tablet,extended release 24 hr 12.5 mg PO QDAY #90 tab 10/12/16 [Rx Confirmed 03/20/17 Last Taken 03/20/17 08:00] cefdinir 300 mg capsule 300 mg PO Q12H 10 Days #20 cap 03/19/17 [Rx Confirmed Last Taken 03/20/17 04:00] Medical - DS: Hosp Hospital course: Mr. Easley is a 86 year old F March 20, 2017: History of present illness: Ms. Easley is a 86 year old woman with a history of Alzheimer's disease, COPD, osteoporosis, shingles, urinary tract infections, who has been declining at home over the last month. She is awake less and less often, and often refuses food and drink. Her family says she will only drink fluids through a straw, but often refuses to take anything in. She has a no CODE STATUS, and her family stays with her 24 hours a day, but if she has something simple to treat, such as a bladder infection, they would like that treated. They thought perhaps she had a fever today. She also seem to be grimacing today, and they were worried that she was in pain. ER evaluation showed marked hypernatremia, elevated creatinine, fever, leukocytosis, pyuria. The family would like the patient made comfortable, and they would like her to get antibiotics and fluids. If those turn her around and they will take her back home. If those do not improve they really do not want more aggressive measures done. The patient is nonverbal, so she has not been able to tell them about any specific symptoms. They have not noticed signs of headaches or dizziness, sore throat or cough, chest pain or shortness of breath, abdominal pain, nausea or vomiting. They do believe she has been constipated for several days. They are unaware of dysuria. March 21: Today, the patient is a bit more responsive, but is still nonverbal. She keeps her eyes closed mostly. She grimaces and withdraws anytime she is touched or moved. Sodium is somewhat improved, but she has remained fairly hypotensive throughout the night, although she is maintaining mean arterial blood pressures above 65. She is still oxygenating well. BUN and creatinine are improved. 3 of her daughters are in the room with her this morning. They would like to continue with treatment for UTI with IV fluids and antibiotics, to see if she will improve. Beyond that, they would like to meet with a hospice nurse to discuss with her options are. There are long-term goal is to have the mother at home and not bring her back to the hospital, but to keep her comfortable. The patient is unable to contribute any history. March 22: Hospital course: This patient was admitted and treated for severe hypernatremia and possible early left lower lobe pneumonia and possible urinary tract infection, at the family's request. They do agree however, that her mental status is gone progressively downhill. They understand that she has a terminal disease, and their ultimate goal is just for her to be comfortable and at home. They did meet with hospice yesterday, and are now agreeable to transitioning her to comfort care. She will be discharged to home today. She can continue with oral antibiotics, as they are able to get them into her, for her possible pneumonia.. They will work hard on keeping her hydrated, but this sounds sounds like it has become progressively more challenging, and she will likely develop dehydration and electrolyte abnormalities again. This was discussed again at length with her daughter this morning. Hypernatremia has resolved with hydration. On exam, she is a somnolent frail elderly female, who grimaces if she is touched or examined. Neck shows no obvious JVD. Cardiac exam shows regular rate and rhythm. Lungs appear fairly clear to auscultation, with some scattered crackles. Abdomen is soft without obvious tenderness. Extremities she is generally puffy now, likely due to hydration. Neurologic: The patient is fairly obtunded. She keeps her eyes closed. She occasionally grimaces. She does not follow commands. Her daughter is able to intermittently get her to take a sip of fluids or applesauce. Assessment and plan: #1. Infectious disease. Patient presents with fever, altered mental status, and lab data consistent with both urinary tract infection and early left lower lobe pneumonia. -Per the family's wishes, patient was admitted for IV fluids and antibiotics. They do not want intubation or other aggressive resuscitation measures. -Cultures have been unrevealing. Chest x-ray suggestive of possible left lower lobe infiltrate and chronic pulmonary fibrosis. Urine culture is negative so far. Blood cultures are negative so far. -The patient has remained quite hypotensive throughout her stay, but family declined resuscitative measures beyond IV fluids. -Family is agreeable to transitioning the patient to comfort care. They can either stop antibiotics, or continue with oral Augmentin for the next 5 days. They will continue to try to keep her hydrated. Hospice will help them with transition to comfort care. Oral morphine and lorazepam solutions have been ordered. 2. Endocrine. Patient presents with severe hypernatremia, consistent with severe free water deficit. This is likely due to ongoing poor intake of free water for quite some time. I expect that is also related to her dementia. -Hypernatremia is resolved. 3. Mildly elevated troponin and BNP. She certainly could have underlying coronary disease, or these just may be related to her acute kidney dysfunction. She has a no code order, and family would not want aggressive measures. 4. Pulmonary. Patient appears to have an early left lower lobe pneumonia, in the setting of COPD and pulmonary fibrosis. Continue supportive measures, incentive spirometry, oxygen as needed, bronchodilators as needed. Patient can continue with oral Augmentin solution, if the family elects to do this. 5. CODE STATUS: No CPR. 1 of her daughters has her POA, but they say all of the family would have to agree before moving to comfort/hospice care. It sounds like they have all agreed to this at this time. 6. DVT prophylaxis: Subcu heparin. 7. Neurologic. Patient has a history of Alzheimer's disease. She is currently cared for by her family at home. It sounds like they do not want to put her through a lot of procedures and such, and would rather move to comfort care . Discharge diagnosis: Pneumonia. End-stage dementia. Severe hypernatremia/ dehydration. - Time Spent with Patient Total time spent providing and/or coordinating discharge services: Greater than 30 minutes Medical - DS: Exam - Constitutional Vitals: Vital Signs Temp Pulse Resp BP BP Pulse Ox 03/22/17 07:00 90 16 03/22/17 04:01 99.4 F H 30 H 75/45 94 03/22/17 02:14 99.0 F H 30 H 75/45 03/22/17 01:46 99 H 30 H 03/22/17 00:50 99.7 F H 30 H 94 03/21/17 20:05 65/38 03/21/17 20:02 99.8 F H 30 H 56/45 03/21/17 20:00 30 H 03/21/17 19:37 88 20 03/21/17 16:00 97.3 F 14 80/51 92 03/21/17 13:45 85 20 03/21/17 13:01 79/49 91 03/21/17 12:01 83/53 93 03/21/17 11:01 69/51 93 Intake and Output 03/21/17 03/22/17 03/22/17 21:59 05:59 13:59 Intake Total 660 / 660 1015 / 1015 727 / 727 Output Total 525 / 525 625 / 625 Balance 135 / 135 390 / 390 727 / 727 Intake: IV 1015 / 1015 727 / 727 Potassium Chloride 30 Meq In 1015 / 1015 727 / 727 Dextrose 5% in Water 1,000 ml @ 100 mls/hr IV .[id number] [facility] Rx#: [id number] Oral 660 / 660 Output: Urine Catheter Amount 500 / 500 625 / 625 Emesis 25 / 25 Other: Meal juice Percent of Meal Consumed 100% # Bowel Movements 1 # of times incontinent of 1 Bowels Weight 129 lb 8 oz Medical - DS: Data Labs on day of discharge: Labs from last 24 hours 03/22/17 03/22/17 03:48 03:48 WBC 10.5 RBC 3.65 L Hgb 11.2 L Hct 34.3 L MCV 94.1 MCH 30.7 MCHC 32.6 RDW 16.1 H Plt Count 220 MPV 10.0 Gran % 74.8 Lymph % (Auto) 20.3 [place] % (Auto) 3.4 Eos % (Auto) 1.2 Baso % (Auto) 0.3 Gran # 7.9 Lymph # (Auto) 2.1 [place] # (Auto) 0.4 Eos # (Auto) 0.1 Baso # (Auto) 0 Sodium 155 H Potassium 4.3 Chloride 122 H Carbon Dioxide 19 L Anion Gap 14.0 BUN 22 Creatinine 0.8 GFR Calculation 67 Glucose 122 H Uric Acid 4.7 Calcium 8.5 L Phosphorus 1.1 L Magnesium 2.3 Total Bilirubin 0.2 Direct Bilirubin < 0.2 GGT 50 H AST 42 H ALT 39 Alkaline Phosphatase 164 H Lactate Dehydrogenase 242 Total Protein 5.6 L Albumin 2.4 L Globulin 3.2 Albumin/Globulin Ratio 0.8 L Triglycerides 284 H Preliminary micro results at discharge 03/20/17 08:33 Blood Culture - Preliminary Blood 03/20/17 08:20 Blood Culture - Preliminary Blood March 22: Urine culture is negative. Blood cultures are negative so far. March 21: Chest x-ray: Persistent mild left lower lobe pneumonia superimposed upon underlying pulmonary fibrosis. March 20: CBC: White blood cell count is 12,300, hemoglobin 14, hematocrit 43, platelets 280,000. Differential: Shows 9900 granulocytes. Chemistry panel: Sodium is 169, potassium 4.1, chloride 131, CO2 20, anion gap 18, BUN 50, creatinine 1.4, glucose 162 Lactic acid is elevated at 2.9 ProBNP is elevated at 3335 Troponin is elevated at 0.05 next Urinalysis shows 30 mg of protein, 5 ketones, 75 leukocyte esterase, 36 white blood cells, few bacteria. Chest x-ray: Shows a small alveolar infiltrate medially in the left lower lobe with underlying interstitial pulmonary fibrosis throughout. Medical - DS: A/P - Patient/Caregiver Discharge Instructions Activity: as instructed Diet: Dysphagia Pureed Additional Instructions: 1. Alzheimer's disease, terminal. -Your family has elected to transition to comfort care. Ongoing care will be co -managed by your primary care physician and the hospice team. You have been prescribed lorazepam and morphine solutions, to be used as needed. Next -You may have a mild pneumonia. You can continue with oral antibiotics, or discontinue at this time. -Goal for hydration is to get in at least 6 cups of fluid a day, as tolerated. Discharge medications: Augmentin solution, 10 mL p.o. every 8 hours, 5 days, for possible early pneumonia. Morphine solution, 10 mg per 5 mL's, 2.5 mg p.o. every 30 minutes as needed pain or respiratory distress Lorazepam solution, 0.5 mg p.o. every 4 hours as needed anxiety or agitation Tylenol 650 mg every 6 hours as needed Dulcolax suppository 10 mg daily as needed constipation Colace 100 mg p.o. twice daily Milk of magnesia 30 mL daily as needed constipation Vitamin D 1000 units daily, this could be discontinued Xopenex nebulizers every 4 hours as needed wheezing or shortness of breath Given that she is transitioning to comfort care, it would be fine to discontinue vitamin D, multivitamin, metoprolol Prescriptions: Amoxicillin/Potassium Clav [Augmentin 250-62.5 mg/5 ml] 10 ml PO Q8H #150 ml LORazepam [Lorazepam Intensol] 0.5 mg PO Q4HP PRN #30 ml PRN Reason: Anxiety morphine SULFATE [Morphine Sulfate] 2.5 mg PO Q30M PRN #120 ml PRN Reason: Pain - Problem Maintenance (1) LLL pneumonia Status: Acute (2) Altered mental status Status: Acute Qualifiers: Altered mental status type: somnolence Qualified Code(s): R40.0 - Somnolence (3) UTI (urinary tract infection) Status: Resolved (5) COPD (chronic obstructive pulmonary disease) Status: Chronic - Follow up Plan Follow up with: Daryl Linares MD [Primary Care Provider] - (Schedule a follow up appointment as needed) Disposition: Hospice - Home Prognosis: Serious Rehab Potential: Serious I certify that the patient requires SNF services: No Overall status at discharge: patient is not back to baseline Medical - DS: Qual - VTE Deep Vein Thrombosis/Pulmonary Embolism Present on Admission: No
== END 2017-03-22 13:58 | disposition hospice, home (50) | DRG 194 ==
LOC: ED 08:08 → ICU 11:42
PROVIDERS: ADMIT Internal Medicine; ATTEND Internal Medicine